=== PATIENT | female | born 1975 | race Caucasian/White ===

== ENCOUNTER 2022-08-18 16:41 | Emergency (ER) | payer OTHER ==
--- NOTE | 2022-08-18 17:15 | ED Physician Documentation ---
PD HPI CHEST PAIN - Stated complaint Stated Complaint: SOA, CHEST PAIN - Chief complaint Chief Complaint: Cardiac - History obtained from History obtained from: Patient - History of Present Illness Pain level max: 7 Pain level now: 3 Quality: Pressure, Tightness Location: Substernal Radiation: No: Jaw, Neck, Back, Abdominal, Left upper extremity, Right upper extremity Improved by: Nothing Worsened by: Other (nothing). No: Exertion, Inspiration, Eating, Movement, Palpation, Position Associated symptoms: Shortness of air (mild). No: Nausea, Vomiting, Feeling faint / dizzy, General Weakness Recently seen: Not recently seen - Additional information Additional information: Patient is a 47-year-old female who presents to the emergency department with chest pain since this morning at about 7 AM. She states initially it was quite severe but is lessened throughout the day. Has been relatively constant, described as a pressure and tightness. She states that sometimes her asthma attacks feel similar, took albuterol without relief. She also tried Tylenol and Motrin without much relief. No cardiac history. Does not smoke. Review of Systems Constitutional: denies: Fever, Chills Throat: denies: Sore throat Cardiac: denies: Palpitations Respiratory: denies: Cough GI: denies: Abdominal Pain, Nausea, Vomiting, Diarrhea Skin: denies: Rash Musculoskeletal: denies: Neck pain, Back pain Neurologic: denies: Headache PD PAST MEDICAL HISTORY - Past Medical History Respiratory: Asthma - Past Surgical History Past Surgical History: Yes - Present Medications Home Medications: Ambulatory Orders Medication Instructions Recorded Confirmed Albuterol Sulfate [Proair Hfa 1 - 2 puffs INH Q4H PRN 08/18/22 08/18/22 Inhaler] - Allergies Allergies/Adverse Reactions: Allergies Allergy/AdvReac Type Severity Reaction Status Date / Time No Known Drug Allergies Allergy Verified 08/18/22 16:54 - Social History Does the pt smoke?: No Smoking Status: Never smoker Does the pt drink ETOH?: Yes Does the pt have substance abuse?: No - Immunizations Immunizations are current?: Yes PD ED PE NORMAL - Vitals Vital signs reviewed: Yes - General General: Alert and oriented X 3, No acute distress, Well developed/nourished - HEENT HEENT: PERRL, Moist mucous membranes - Neck Neck: Supple, no meningeal sign - Cardiac Cardiac: RRR - Respiratory Respiratory: No respiratory distress, Clear bilaterally - Abdomen Abdomen: Soft, Non tender, Non distended - Derm Derm: Warm and dry - Extremities Extremities: No edema, No calf tenderness / cord - Neuro Neuro: Alert and oriented X 3 - Psych Psych: Normal mood, Normal affect Results - Vitals Vitals: Vital Signs - 24 hr 08/18/22 08/18/22 08/18/22 16:51 17:30 17:59 Temperature 36.4 C L Heart Rate 64 70 63 Respiratory 16 12 12 Rate Blood Pressure 151/92 H 152/88 H 136/89 H O2 Saturation 100 100 100 08/18/22 08/18/22 08/18/22 18:00 18:12 18:30 Temperature Heart Rate 70 65 68 Respiratory 12 16 11 L Rate Blood Pressure 130/85 H 116/81 H O2 Saturation 99 100 Oxygen O2 Source Room air - EKG (time done) 1658 Rate: Rate (enter#) (71) Rhythm: NSR [place]: Normal Intervals: Normal NV QRS: Normal Ischemia: Normal ST segments - Labs Labs: Laboratory Tests 08/18/22 08/18/22 08/18/22 17:15 17:15 17:15 WBC 8.3 RBC 4.51 Hgb 15.1 Hct 41.8 MCV 92.7 MCH 33.5 H MCHC 36.1 H RDW 12.2 Plt Count 263 MPV 9.7 Neut # (Auto) 5.1 Lymph # (Auto) 2.4 [place] # (Auto) 0.6 Eos # (Auto) 0.2 Baso # (Auto) 0.1 Absolute Nucleated RBC 0.00 Nucleated RBC % 0.0 Sodium 137 Potassium 4.0 Chloride 100 L Carbon Dioxide 29 Anion Gap 8.0 BUN 20 Creatinine 0.7 Estimated GFR (MDRD) 89 Glucose 100 Calcium 9.0 Total Bilirubin 0.5 AST 18 ALT 14 Alkaline Phosphatase 60 Troponin I High Sens 2.8 Total Protein 7.3 Albumin 4.3 Globulin 3.0 Albumin/Globulin Ratio 1.4 Lipase 35 - Rads (name of study) cxr Radiology: Final report received, EMP read contemporaneously, See rad report (no acute abnormality) PD MEDICAL DECISION MAKING - ED course Complexity details: reviewed results, re-evaluated patient, considered differential (No ST elevation OK, no aortic dissection, no PE, no tension pneumothorax, no aortic aneurysm), d/w patient ED course: 47-year-old female presents to the emergency department with chest pain. This has been ongoing all day long, greater than 6 hours. Negative high-sensitivity troponin. Normal EKG. Symptoms resolved with a DuoNeb treatment. Likely related to her asthma. No acute findings on chest x-ray. Patient is currently asymptomatic. We will have her follow-up with her doctor for further care. Patient counseled regarding signs and symptoms for which I believe and urgent re-evaluation would be necessary. Patient with good understanding of and agreement to plan and is comfortable going home at this time This document was made in part using voice recognition software. While efforts are made to proofread this document, sound alike and grammatical errors may occur. Departure - Departure Disposition: 01 Home, Self Care Clinical Impression: Asthma exacerbation Qualifiers: Asthma severity: unspecified severity Asthma persistence: unspecified Qualified Code(s): J45.901 - Unspecified asthma with (acute) exacerbation Chest pain Qualifiers: Chest pain type: unspecified Qualified Code(s): R07.9 - Chest pain, unspecified Condition: Good Instructions: ED Reactive Airway Disease, ED Chest Pain Atypical Unkn Cause Follow-Up: Your,doctor in 1 week [Other] Comments: Please follow-up with your doctor for further care. Please return if you worsen. Your symptoms improved with a DuoNeb treatment today. Your EKG and laboratory testing do not show any acute abnormalities. Your chest x-ray is also normal. Please continue your inhaler at home and return if you worsen. Discharge Date/Time: 08/18/22 18:35
[2022-08-18 17:26] LABS: BASOPHILS # (AUTO) 0.1 10^3/uL (0.0-0.1); BASOPHILS % (AUTO) 0.8 %; EOSINOPHILS # (AUTO) 0.2 10^3/uL (0.0-0.7); EOSINOPHILS % (AUTO) 2.5 %; HCT - HEMATOCRIT 41.8 % (37.0-47.0); HGB - HEMOGLOBIN 15.1 g/dL (12.0-16.0); LYMPHOCYTES # (AUTO) 2.4 10^3/uL (1.5-3.5); LYMPHOCYTES % (AUTO) 28.6 %; MEAN CORPUSCULAR HEMOGLOBIN 33.5 pg (27.0-31.0); MEAN CORPUSCULAR HGB CONC 36.1 g/dL (32.0-36.0); MEAN CORPUSCULAR VOLUME 92.7 fL (81.0-99.0); MEAN PLATELET VOLUME 9.7 fL (7.9-10.8); MONOCYTES # (AUTO) 0.6 10^3/uL (0.0-1.0); MONOCYTES % (AUTO) 6.9 %; NEUTROPHILS # (AUTO) 5.1 10^3/uL (1.5-6.6); NEUTROPHILS % (AUTO) 61.1 %; PLT - PLATELET COUNT 263 10^3/uL (130-450); RED BLOOD COUNT 4.51 10^6/uL (4.20-5.40); RED CELL DISTRIBUTION WIDTH 12.2 % (12.0-15.0); WHITE BLOOD COUNT 8.3 x10^3/uL (4.8-10.8)
--- NOTE | 2022-08-18 17:36 | XRAY Report ---
PROCEDURE: Chest 1 View X-Ray INDICATIONS: Chest pain TECHNIQUE: One view of the chest was acquired. COMPARISON: None FINDINGS: Surgical changes and devices: None. Lungs and pleura: No pleural effusions or pneumothorax. Lungs are clear. Mediastinum: Mediastinal contours appear normal. Heart size is normal. Bones and chest wall: No suspicious bony lesions. Overlying soft tissues appear unremarkable. IMPRESSION: No acute cardiopulmonary findings Reviewed by: Justino Hilario MD on 08/18/2022 4:35 PM [facility]DT Approved by: Justino Hilario MD on 08/18/2022 4:35 PM AKDT Station ID: [id number]
[2022-08-18 17:37] LABS: ALBUMIN 4.3 g/dL (3.2-5.5); ALBUMIN/GLOBULIN RATIO 1.4 (1.0-2.2); BILIRUBIN,TOTAL 0.5 mg/dL (0.2-1.0); CREATININE 0.7 mg/dL (0.4-1.0); TOTAL PROTEIN 7.3 g/dL (6.7-8.2)
[2022-08-18] MEDS ORDERED: IPRATROPIUM/ALBUTEROL 3 ML NEB INH STA (17:53)
[2022-08-18 18:32] VITALS: BP 116/81
== END 2022-08-18 18:35 | disposition home or self-care (01) ==
LOC: ED 16:41
DX: J45.901 Unspecified asthma with (acute) exacerbation (principal); R07.9 Chest pain, unspecified
CPT/HCPCS: 36415; 80053; 83690; 84484; 85025; 93005; 94640; 94664; 99284